=== PATIENT | female | born 1990 ===

== ENCOUNTER 2020-08-08 16:37 | Emergency (ER) | payer MEDICAID ==
[~2020-08-08] VITALS: Ht 162.6 cm; Wt 47.7 kg
[2020-08-08 16:43] VITALS: BP 98/67
== END 2020-08-08 17:43 | disposition left against medical advice (07) ==
LOC: EMS 16:37
DX: R51.9 Headache, unspecified (principal); Z53.21 Procedure and treatment not carried out due to patient leaving prior to being seen by health care provider